=== PATIENT | female | born 1965 | race Native Hawaiian/Other Pacific Islander ===

== ENCOUNTER 2017-12-15 17:44 | Emergency (ER) | payer OTHER, MEDICAID, SELFPAY ==
[2017-12-15 17:49] VITALS: BP 155/86; PULSE 93; RESP 14; TEMP 37.3; O2SAT 100; BMI 21.0
[2017-12-15 18:22] VITALS: BP 123/78; PULSE 88; RESP 26; O2SAT 99
--- NOTE | 2017-12-15 19:01 | ED_ITS ---
HPI - Syncope General Chief Complaint: Syncope Stated Complaint: FELL LAST WEEK,BLACKING OUT Time Seen by Provider: 12/15/17 18:08 Source: patient Mode of arrival: ambulatory Limitations: no limitations History of Present Illness HPI narrative: Patient states that last week, and she was feeling lightheaded and had been having diarrhea. She passed out for an unknown amount of time 6 days ago, and then continued to have GI symptoms for a few days. Patient states things have gotten much better over the last several days, but she felt that she should get ?checked out?. Patient denies chest pain, shortness of breath, or fevers. She denies head trauma. No prior episodes like this. No history of cardiac issues. The other reason she is here is because she has been noticing that her left nipple has become increasingly retracted over the last year. She denies any mass or other abnormalities. She does note that she did lose about 5 lb over the last year. 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 Patient states she has not been to a doctor in 20 years. 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) Context: standing up Treatments prior to arrival: none Related Data Allergies Allergy/AdvReac Type Severity Reaction Status Date / Time morphine Allergy Verified 12/15/17 17:49 Review of Systems Review of Systems All systems reviewed & are unremarkable except as noted in HPI and below Constitutional Denies chills, Denies fever(s), Denies lethargy and Denies weakness Eyes Denies change in vision, Denies eye discharge, Denies irritation and Denies loss of vision ENT Ears, Nose, Mouth, and Throat: Denies change in voice, Denies neck pain and Denies sore throat Cardiovascular Denies chest pain, Reports syncope, Denies irregular heart rhythm, Denies lightheadedness, Denies palpitations, Denies dyspnea, Denies dyspnea on exertion and Denies orthopnea Respiratory Denies cough, Denies dyspnea, Denies dyspnea on exertion and Denies wheezing Gastrointestinal Gastrointestinal: Denies abdominal pain, Denies change in bowel habits, Denies diarrhea, Denies nausea and Denies vomiting Genitourinary Denies hematuria, Denies flank pain, Denies urinary incontinence and Denies urinary urgency Musculoskeletal Denies neck pain Integumentary/Breasts Reports change in breast shape, Denies pruritus, Denies erythema, Denies rash and Denies wounds Neurologic Denies confusion, Reports syncope, Denies loss of vision and Denies weakness Psychiatric Denies anxiety, Denies confusion, Denies depression, Denies homicidal ideation and Denies suicidal ideation Endocrine Denies palpitations Hematologic/Lymphatic Denies easy bruising Allergic/Immunologic Denies wheezing PFSH Surgical History No pertinent past surgical history (Acute) Comment: No smoking alcohol or drugs Exam Initial Vital Signs Initial Vital Signs: Vital Signs Temperature 99.1 F 12/15/17 17:49 Pulse Rate 93 H 12/15/17 17:49 Respiratory Rate 14 12/15/17 17:49 Blood Pressure 155/86 H 12/15/17 17:49 Pulse Oximetry 100 12/15/17 17:49 Const General: cooperative and well developed Nutritional Appearance: well nourished Orientation: alert, awake, oriented x3 and not confused HENAL Head: normocephalic and atraumatic Ears: external ears normal Nose: external nose normal and No nasal discharge Face and sinus: face symmetric and No dry mucous membranes Mouth: oral mucosae normal and moist mucous membranes Eyes General: appearance normal, both eyes and all related structures Eyelids: eyelids normal Conjunctivae: conjunctivae normal Sclera: sclerae normal Pupils: PERRL EOM: EOM intact bilaterally Neck Neck: normal visual inspection, trachea midline, No lymphadenopathy, No midline deformity and No JVD Lymphatic: No lymphedema Chest Chest: normal inspection of the chest Breast inspection: abnormal inspection of the breast (Patient has retraction of her left nipple with downward distortion. No palpable mass or indurated area is present. There is no erythema. No peau d' orange. No nipple drainage. No enlarged lymph nodes. Right breast exam is normal.) Breast Palpation: normal palpation of the breasts (No masses palpable.) and normal palpation of the axillae Resp Effort & Inspection: normal respiratory effort, able to speak in complete sentences, no respiratory distress and no use of accessory muscles Auscultation: clear to auscultation bilaterally, no rales, no rhonchi and no wheezes Cardio Rate: regular rate Rhythm: regular rhythm Heart Sounds: no click, no gallops, no murmurs and no rubs Pulses: normal peripheral pulses GI Inspection: non-distended Palpation: soft, no hepatosplenomegaly, No guarding, No pulsatile mass and No tender Auscultation: normal bowel sounds Back/Spine/Pelvis Back: No CVA tenderness Cervical Spine: cervical ROM normal and No pain with cervical ROM Thoracic/Lumbar Spine: thoracic and lumbar spine normal to inspection Skin General: no rashes or lesions noted, No jaundice and No petechiae Neuro General: alert, oriented x3, gait normal and no focal motor deficits Speech: speech normal Extrem General: full ROM, no clubbing, cyanosis or edema, no pedal edema and no calf tenderness Psych Appearance: well kempt Mental Status: mental status grossly normal Attitude: cooperative Thought Content: normal and suicidality Judgment: judgment good Course Hospital Course: I discussed with the patient that as she is feeling better, and her syncopal episode is so distant, and additionally, as it was associated with volume loss from GI symptoms, I do not feel that a workup is indicated at this time, as it is unlikely to reveal anything significant. However, her breast findings are concerning and it is very important that she seek urgent follow-up for this. As such, I a.m. referring her to oncology for further evaluation. I have also referred her for primary care follow-up , as patient has not had any sort of regular medical care and very long time. Patient is agreeable to this plan I have stressed to her the likelihood of breast cancer as a cause of her breast distortion, and have emphasized that delay in seeking care could be fatal. Patient expresses understanding. Vital Signs - 8 hr 12/15/17 17:49 12/15/17 18:22 Temperature 99.1 F Pulse Rate 93 H 88 Respiratory Rate 14 26 H Blood Pressure 155/86 H Blood Pressure [Left Arm] 123/78 Pulse Oximetry 100 99 Discharge Plan Departure Patient Disposition: Home Clinical Impression: Breast asymmetry, Syncope Discharge Date/Time: 12/15/17 20:15 Interventions: ED Discharge Assessment Last Done: 12/15/17 20:15 Instructions: Breast Cancer in Women, Breast Cancer Screening: Research and Guidelines Activity Restrictions/Additional Instructions: Your fainting episode is nearly a week ago, and as you are feeling better, and have been for the last several days, no emergent workup is necessary at this time. However, if you have further fainting episodes, or feel off balance , further testing should be done. In the meantime, drink plenty of fluids, and get adequate sleep. The most concerning thing tonight is the change in your left breast. The retraction and deformity of your nipple is concerning for breast cancer, and as such, you need to have a mammogram as soon as possible. Please call tomorrow morning to set up an appointment with your primary care physician to establish care and to be examined and set up for your mammogram. Please do not delay follow-up for this issue. Referrals: [facility] [Provider Group] ( Please call 1st thing in the morning to set up an appointment for as soon as possible. Tell them you may have breast cancer.)
[2017-12-15 19:55] VITALS: BP 126/76; PULSE 84; RESP 22; O2SAT 100
[2017-12-15 20:07] VITALS: BP 155/86; PULSE 84; RESP 22; TEMP 37.3; O2SAT 100; BMI 21.0
== END 2017-12-15 20:15 | disposition home or self-care (01) ==
PROVIDERS: Emergency Provider Emergency Medicine
DX: N64.89 Other specified disorders of breast (principal); R55 Syncope and collapse
CPT/HCPCS: 93005; 93010; 99282; 99283

== ENCOUNTER 2020-04-19 13:38 | Inpatient (IN) | payer SELFPAY ==
[2020-04-19] VITALS (10 sets, daily range): BP systolic 135–176; BP diastolic 67–88; PULSE 87–108; RESP 18–22; TEMP 37.1–37.3; O2SAT 96–100; BMI 21.2
--- NOTE | 2020-04-19 13:52 | DI.CT.S_ITS ---
PROCEDURE: CT STROKE INDICATIONS: neuro def TECHNIQUE: Noncontrast 4.5 mm thick angled axial sections acquired from the foramen magnum to the vertex, with coronal reformats. For radiation dose reduction, the following was used: automated exposure control, adjustment of mA and/or kV according to patient size. COMPARISON: None. FINDINGS: Image quality: Excellent. CSF spaces: Basal cisterns are patent. No extra-axial fluid collections. Ventricles are normal in size and shape. Brain: Hypodensities are present involving the frontal lobes bilaterally, left parietal lobe and left occipital lobe consistent with cerebral infarcts, probably subacute. Possible mass in the right parietal lobe. No intracranial bleed. No midline shift. No intracranial masses or hemorrhage. Skull and face: Calvarium and visualized facial bones are intact, without suspicious lesions. Sinuses: Visualized sinuses and mastoids are clear. IMPRESSION: 1. Multifocal hypodensities involving the frontal lobes bilaterally, left parietal lobe and left occipital lobe. There may be masses in the left frontal lobe and parietal lobe suggesting metastatic disease with strong vasogenic edema. MRI with and without contrast is recommended for further evaluation. The result was discussed with Dr. Valdez. This study fulfills neurological imaging criteria for inclusion or exclusion of acute stroke therapies based on available published neurological imaging guidelines. Dictated by: Flex Church M.D. on 04/19/2020 at 14:08 Approved by: Flex Church M.D. on 04/19/2020 at 14:19
--- NOTE | 2020-04-19 14:11 | PC.NURSE ---
Addendum entered by Lexie Vazquez R.N. 04/19/20 15:54: Patient reports was at work today and had sudden change in vision. Reports seeing bright lights like my phone was flashing in right eye only. At same time experienced sudden change in balance. Called EMS. Upon arrival patient reports still having bright lights in right eye. Denies chest pain, SOB, or dizziness while seated in bed. EKG performed. NIH scale performed. Patient to CT. Glucose POC 100. Provider aware of findings. Original Note: Patient reports last known well as 1230.
[2020-04-19] MEDS: SODIUM CHLORIDE 0.9% 1,000 ML 150 ML IV (14:25)
--- NOTE | 2020-04-19 14:29 | DI.MRI.S_ITS ---
PROCEDURE: MR HEAD/BRAIN WO/W CON INDICATIONS: ? multiple masses with vasogenic edema on CT for strok TECHNIQUE: Noncontrast axial T1 spin echo, axial T2 fast spin echo, sagittal and axial FLAIR, coronal T2 fast spin echo, axial gradient echo, axial diffusion and ADC through the brain. After the administration of contrast, axial and coronal 3D VIBE or T1 spin echo with fat saturation through the brain. COMPARISON: [facility], CT, CT STROKE, 04/19/2020, 13:53. FINDINGS: Image quality: Excellent. CSF Spaces: Basal cisterns are patent. No extra-axial fluid collections. Ventricles are normal in size and shape. Brain: Multiple rim enhancing masses are seen, with the largest seen within the left occipital lobe measuring 2 x 2 by 2.3 cm. At least 13 total masses are seen involving both cerebral hemispheres as well as both cerebellar hemispheres. Surrounding vasogenic edema is seen. Minimal mass effect is seen. No midline shift. The brainstem appears normal. Diffusion-weighted images demonstrate no acute ischemic insults. No chronic ischemic insults. Normal intravascular flow voids are present. Skull and face: Calvarial marrow is normal in signal. Orbits appear normal. Sinuses: Sinuses and mastoids appear clear. IMPRESSION: At least 13 rim enhancing parenchymal masses can be seen, which represent metastatic disease until proven otherwise. The largest of these is seen within the left occipital lobe measuring up to 2.3 cm. Dictated by: Tien Becerril M.D. on 04/19/2020 at 15:08 Approved by: Tien Becerril M.D. on 04/19/2020 at 15:11
[2020-04-19 14:33] LABS: Add Manual Diff / Slide Review NO; Basophils Absolute Auto 100 /uL (0-100); Eosinophils Absolute Auto 100 /uL (0-450); Eosinophils Percent Auto 1.4 % (2-4); Hematocrit 42.7 % (36-46); Hemoglobin 14.6 g/dL (12.0-16.0); Lymphocytes Absolute Auto 2900 /uL (1100-4500); Lymphocytes Percent Auto 32.9 % (25-40); Mean Corpuscular HGB Conc 34.1 % (30-36); Mean Corpuscular Hemoglobin 32.3 PG (26-34); Mean Corpuscular Volume 94.5 fL (80-100); Monocytes Absolute Auto 500 /uL (0-900); Monocytes Percent Auto 5.4 % (3-14); Neutrophils Absolute Auto 5200 /uL (1500-7000); Neutrophils Percent Auto 59.3 % (50-75); Platelet Count 410 X10^3/uL (150-400); Prothrombin Time 11.8 SECONDS (10.1-12.7); Red Blood Cell Count 4.52 X10^6/uL (4.0-5.2); Red Cell Distribution Width 12.5 % (11.6-14.8); White Blood Cell Count 8.7 X10^3/uL (4.5-11.0)
[2020-04-19 14:35] LABS: PTT Partial Thromboplastin Tim 33 SECONDS (26.4-36.2)
[2020-04-19 14:40] LABS: Alanine Aminotransferase 31 IU/L (<35); Albumin 4.8 g/dL (3.5-5.0); Albumin Globulin Ratio 1.4 (1.0-2.8); Alkaline Phosphatase 106 U/L (38-126); Aspartate Aminotransferase 37 IU/L (14-36); BUN Creatinine Ratio 20.6 (6-22); Bilirubin Total 0.3 mg/dL (0.2-1.3); Blood Urea Nitrogen 13 mg/dL (7-17); Calcium 9.8 mg/dL (8.4-10.2); Carbon Dioxide 26 mmol/L (22-32); Chloride 107 mmol/L (98-107); Creatine Kinase 80 U/L (30-135); Estimated Glomerular Filt Rate > 60.0 mL/min (>60); Globulin 3.4 g/dL (1.7-4.1); Glucose 107 mg/dL (70-100); HEMOLYSIS < 15 (0-50); Potassium 4.3 mmol/L (3.4-5.1); Sodium 139 mmol/L (137-145); Total Protein 8.2 g/dL (6.3-8.2)
[2020-04-19] MEDS: LORazepam 2 MG/ML INJ 0.5 MG IV (14:40)
[2020-04-19 14:48] LABS: COVID19 -Nasal RAPID Negative (Negative)
[2020-04-19 14:52] LABS: Troponin I < 0.012 ng/mL (0.01-0.034)
[2020-04-19] MEDS: DEXAMETHASONE 10 MG/ML VIAL IV (17:15)
--- NOTE | 2020-04-19 17:24 | DI.CT.S_ITS ---
PROCEDURE: CT CHEST ABD PEL W CON INDICATIONS: mets to brain found today, unknown primary TECHNIQUE: After the administration of oral and intravenous contrast, 5 mm thick sections acquired from the lung apices to the symphysis. 5 mm coronal and sagittal reformats were performed, with additional 7 mm coronal MIP reformats through the lungs. For radiation dose reduction, the following was used: automated exposure control, adjustment of mA and/or kV according to patient size. COMPARISON: [facility], MR, MR HEAD/BRAIN WO/W CON, 04/19/2020, 15:32. FINDINGS: Image quality: Excellent. CHEST: Lungs and pleura: Mild emphysematous change. Spiculated pulmonary nodule in the left upper lobe measuring at 2.4 x 1.7 cm, (3/111). No significant acute airspace opacities. Mild bibasilar atelectasis. The subtle mosaic attenuation in the lungs. No pleural effusions or pneumothorax. Central and peripheral airways appear patent and normal in caliber. Mediastinum: Heart size is normal. No pericardial effusion. Subcarinal lymph node with a short axis diameter of 1.1 cm, (2/26). Thoracic aorta and central pulmonary arteries are normal in size. Esophagus is normal in caliber. No hiatal hernia. Chest wall: Left subareolar mass measuring at 2.4 x 1.4 cm, (2/32). There appears to be left nipple retraction/inversion. No axillary or supraclavicular adenopathy by size criteria. Right thyroid nodule measuring 0.6 cm. ABDOMEN: Solid organs: Liver is enlarged. No focal lesion seen. Gallbladder is surgically absent. Biliary system is non dilated. Pancreas enhances normally. Spleen is normal in size and enhancement. No adrenal nodules. Kidneys demonstrate normal size and enhancement, without hydronephrosis. Peritoneum and bowel: Bowel loops demonstrate normal wall thickness and caliber. Diverticulosis. Appendix is gas-filled and within normal limits in caliber. No free fluid or air. Nodes and vessels: No retroperitoneal or mesenteric adenopathy by size criteria. Aorta and inferior vena cava are normal in size. Miscellaneous: No ventral hernias. PELVIS: Genitourinary: Increased density of the urine in the bladder. This is likely due to contrast excretion from recent MRI. Uterus is unremarkable. No free fluid. Miscellaneous: No inguinal hernias or adenopathy. Bones: No suspicious bony lesions. T6 compression fracture. IMPRESSION: 1. Left upper lobe spiculated pulmonary nodule measuring up to 2.4 cm. Suspect primary bronchogenic carcinoma. Solitary metastasis could also have this appearance. 2. Left subareolar mass measuring at 2.4 cm. There appears to be nipple inversion. Suspect breast cancer. Metastatic disease is also in the differential diagnosis. 3. Enlarged subcarinal lymph node suspicious for metastasis. 4. T6 compression fracture. Age indeterminate. 5. Mild emphysematous change. 6. Hepatomegaly. Dictated by: Adan Fisher M.D. on 04/19/2020 at 17:06 Approved by: Adan Fisher M.D. on 04/19/2020 at 17:23
--- NOTE | 2020-04-19 18:21 | ED.GENADULT ---
HPI - General Adult General Chief complaint: Dizziness Stated complaint: Sudden flashes light right eye and dizzy Time Seen by Provider: 04/19/20 14:03 Source: patient Mode of arrival: EMS History of Present Illness HPI narrative: 55-year-old woman with no significant medical complaints who has not seen a doctor for a number of years presents with acute onset of bright vision in the left eye, a sense of acute weakness all over and then difficulty walking with weakness in her left leg. Code stroke is called and she has taken immediately to the CT scanner. She complains of no weight loss and does note that she gained 4 lb in the last couple of days. No fevers, chills, chest pain, dyspnea, abdominal pain, vomiting, diarrhea or other constitutional symptoms Related Data Allergies Allergy/AdvReac Type Severity Reaction Status Date / Time morphine Allergy Verified 12/15/17 17:49 Review of Systems Review of Systems Narrative: Remainder of review of systems including constitutional, ENT, cardiovascular, respiratory, GI, , musculoskeletal, skin, neurologic and psychiatric systems reviewed and are unremarkable except as noted in HPI. Patient History Surgical History History of Exam Narrative Exam Narrative: General: Healthy appearing, Able to give a complete and coherent history. Well-nourished well-developed HEENT: Moist mucous membranes, normal sclera with reactive pupils, very slight left facial droop with flattened left labial fold, no sensory changes Neck: No JVD, supple, no cervical adenopathy Respiratory: Lungs are clear to auscultation, no wheezing no rales no rhonchi. Full and symmetrical air movement Cardiac: Regular rate and rhythm no murmurs no bruits Chest: Breast exam right breast is unremarkable with no masses, skin changes or nipple discharge. Left breast with obvious abnormalities with retracted lower portion of the breast and nipple, firm around the entire area without erythema, peau de orange or nipple discharge Abdomen: Soft nontender good bowel tones, no flank pain. No hepatosplenomegaly Skin: Warm and dry, no rashes Neurologic: Mild left facial droop with no sensory changes. Mild right leg weakness with no sensory changes. Right hemianopia. Extremities: No trauma, well perfused Psych: Cooperative, appropriate insight and affect Initial Vital Signs Initial Vital Signs: Vital Signs Pulse Rate 87 04/19/20 13:40 Blood Pressure 176/77 H 04/19/20 13:40 Pulse Oximetry 98 04/19/20 13:40 Scores NIH Stroke Scale Level of Conciousness: Alert, keenly responsive Ask month/age: Answers both questions correctly. Open/close eyes, close hand: Performs both tasks correctly Best gaze horizontal: Normal Visual garcia: Complete hemianopia Facial palsy: Minor paralysis, flattened nasolabial fold, asymmetry on smiling Left arm drift: No drift for full 10 sec Right arm drift: No drift for full 10 sec Left leg drift: No drift for full 5 sec Right leg drift: Drifts down, not to bed Limb ataxia: Present in one limb Sensory on face/arms/legs: Normal, no sensory loss Best language: No aphasia, normal Dysarthria: Normal Extinction or inattention: No abnormality Total NIH Stroke scale score: 5 Course Orders Ordered: ED Orders 04/19/20 13:49 COVID19 Stat Complete Blood Count AUTO DIFF Stat Comprehensive Metabolic Panel Stat Partial Thromboplastin Time Stat Prothrombin Time INR Stat Troponin & CK Cardiac Panel Stat 04/19/20 13:52 CT Stroke Stat 04/19/20 14:17 Urine Drug Screen, Rapid Stat 04/19/20 14:29 MR head/brain wo/w con Stat 04/19/20 17:24 CT chest abd pel w con Stat Sodium Chloride (Normal Saline 0.9%) 1,000 mls @ 150 mls/hr IV CONT ANNA Last Infusion: 04/19/20 18:15 Dose: 150 mls/hr Documented by: Admin: 04/19/20 14:25 Dose: 150 mls/hr Documented by: WILL Discontinued Medications Dexamethasone (Dexamethasone 10 Mg/Ml Vial) 10 mg IV NOW ONE Stop: 04/19/20 17:11 Last Admin: 04/19/20 17:15 Dose: 10 mg Documented by: WILL Lorazepam (Lorazepam 2 Mg/Ml Inj) 0.5 mg IV NOW ONE Stop: 04/19/20 14:38 Last Admin: 04/19/20 14:40 Dose: 0.5 mg Documented by: WLIL Vital Signs Vital signs: Vital Signs - 8 hr 04/19/20 13:40 04/19/20 14:00 04/19/20 14:29 Temperature 98.8 F Pulse Rate 87 100 H Respiratory Rate 21 Blood Pressure 176/77 H Pulse Oximetry 98 97 04/19/20 14:30 04/19/20 15:00 04/19/20 16:08 Temperature Pulse Rate 95 H 100 H 100 H Respiratory Rate 18 19 Blood Pressure 152/74 H 169/75 H Pulse Oximetry 97 96 98 04/19/20 16:10 04/19/20 16:30 04/19/20 17:00 Temperature Pulse Rate 106 H 108 H 95 H Respiratory Rate 21 20 22 Blood Pressure 155/67 H 154/72 H 135/67 Pulse Oximetry 97 96 96 Medical Decision Making Medical Records Medical records reviewed: Yes I reviewed the patient's medical records. Lab Data Lab results reviewed: Yes I reviewed the patient's lab results. Result diagrams: 04/19/20 13:49 04/19/20 13:49 Labs: Lab Results 04/19/20 04/19/20 04/19/20 Range/Units 13:49 13:49 13:49 WBC 8.7 (4.5-11.0) X10^3/uL RBC 4.52 (4.0-5.2) X10^6/uL Hgb 14.6 (12.0-16.0) g/dL Hct 42.7 (36-46) % MCV 94.5 (80-100) fL MCH 32.3 (26-34) PG MCHC 34.1 (30-36) % RDW 12.5 (11.6-14.8) % Plt Count 410 H (150-400) X10^3/uL Neut % (Auto) 59.3 (50-75) % Lymph % (Auto) 32.9 (25-40) % [place] % (Auto) 5.4 (3-14) % Eos % (Auto) 1.4 L (2-4) % Baso % (Auto) 1.0 (0-2) % Neut # (Auto) 5200 (7172-8945) /uL Lymph # (Auto) 2900 (3980-0950) /uL [place] # (Auto) 500 (0-900) /uL Eos # (Auto) 100 (0-450) /uL Baso # (Auto) 100 (0-100) /uL PT 11.8 (10.1-12.7) SECONDS INR 1.0 (0.9-1.3) APTT 33 (26.4-36.2) SECONDS Sodium 139 (137-145) mmol/L Potassium 4.3 (3.4-5.1) mmol/L Chloride 107 (98-107) mmol/L Carbon Dioxide 26 (22-32) mmol/L BUN 13 (7-17) mg/dL Creatinine 0.63 (0.52-1.04) mg/dL Estimated GFR > 60.0 (>60) mL/min BUN/Creatinine Ratio 20.6 (6-22) Glucose 107 H (70-100) mg/dL Calcium 9.8 (8.4-10.2) mg/dL Total Bilirubin 0.3 (0.2-1.3) mg/dL AST 37 H (14-36) IU/L ALT 31 (<35) IU/L Alkaline Phosphatase 106 (38-126) U/L Total Creatine Kinase 80 (30-135) U/L CK-MB (CK-2) TNP CK-MB (CK-2) Rel Index TNP Troponin I < 0.012 (0.01-0.034) ng/mL Total Protein 8.2 (6.3-8.2) g/dL Albumin 4.8 (3.5-5.0) g/dL Globulin 3.4 (1.7-4.1) g/dL Albumin/Globulin Ratio 1.4 (1.0-2.8) SARS-CoV-2 (PCR) (Negative) 04/19/20 Range/Units 13:49 WBC (4.5-11.0) X10^3/uL RBC (4.0-5.2) X10^6/uL Hgb (12.0-16.0) g/dL Hct (36-46) % MCV (80-100) fL MCH (26-34) PG MCHC (30-36) % RDW (11.6-14.8) % Plt Count (150-400) X10^3/uL Neut % (Auto) (50-75) % Lymph % (Auto) (25-40) % [place] % (Auto) (3-14) % Eos % (Auto) (2-4) % Baso % (Auto) (0-2) % Neut # (Auto) (2220-3075) /uL Lymph # (Auto) (1381-4444) /uL [place] # (Auto) (0-900) /uL Eos # (Auto) (0-450) /uL Baso # (Auto) (0-100) /uL PT (10.1-12.7) SECONDS INR (0.9-1.3) APTT (26.4-36.2) SECONDS Sodium (137-145) mmol/L Potassium (3.4-5.1) mmol/L Chloride (98-107) mmol/L Carbon Dioxide (22-32) mmol/L BUN (7-17) mg/dL Creatinine (0.52-1.04) mg/dL Estimated GFR (>60) mL/min BUN/Creatinine Ratio (6-22) Glucose (70-100) mg/dL Calcium (8.4-10.2) mg/dL Total Bilirubin (0.2-1.3) mg/dL AST (14-36) IU/L ALT (<35) IU/L Alkaline Phosphatase (38-126) U/L Total Creatine Kinase (30-135) U/L CK-MB (CK-2) CK-MB (CK-2) Rel Index Troponin I (0.01-0.034) ng/mL Total Protein (6.3-8.2) g/dL Albumin (3.5-5.0) g/dL Globulin (1.7-4.1) g/dL Albumin/Globulin Ratio (1.0-2.8) SARS-CoV-2 (PCR) Negative (Negative) Point of Care Testing Glucose POC 100 Point of care testing: Point of Care Testing Glucose POC [address] scan - head: Radiologist's Impression: FINDINGS: Image quality: Excellent. CSF spaces: Basal cisterns are patent. No extra-axial fluid collections. Ventricles are normal in size and shape. Brain: Hypodensities are present involving the frontal lobes bilaterally, left parietal lobe and left occipital lobe consistent with cerebral infarcts, probably subacute. Possible mass in the right parietal lobe. No intracranial bleed. No midline shift. No intracranial masses or hemorrhage. Skull and face: Calvarium and visualized facial bones are intact, without suspicious lesions. Sinuses: Visualized sinuses and mastoids are clear. IMPRESSION: 1. Multifocal hypodensities involving the frontal lobes bilaterally, left parietal lobe and left occipital lobe. There may be masses in the left frontal lobe and parietal lobe suggesting metastatic disease with strong vasogenic edema. MRI with and without contrast is recommended for further evaluation. The result was discussed with Dr. Valdez. This study fulfills neurological imaging criteria for inclusion or exclusion of acute stroke therapies based on available published neurological imaging guidelines. Dictated by: Flex Church M.D. on 04/19/2020 at 14:08 Brain MRI with and without contrast: Radiologist's Impression: FINDINGS: Image quality: Excellent. CSF Spaces: Basal cisterns are patent. No extra-axial fluid collections. Ventricles are normal in size and shape. Brain: Multiple rim enhancing masses are seen, with the largest seen within the left occipital lobe measuring 2 x 2 by 2.3 cm. At least 13 total masses are seen involving both cerebral hemispheres as well as both cerebellar hemispheres. Surrounding vasogenic edema is seen. Minimal mass effect is seen. No midline shift. The brainstem appears normal. Diffusion-weighted images demonstrate no acute ischemic insults. No chronic ischemic insults. Normal intravascular flow voids are present. Skull and face: Calvarial marrow is normal in signal. Orbits appear normal. Sinuses: Sinuses and mastoids appear clear. IMPRESSION: At least 13 rim enhancing parenchymal masses can be seen, which represent metastatic disease until proven otherwise. The largest of these is seen within the left occipital lobe measuring up to 2.3 cm. Dictated by: Tien Becerril M.D. on 04/19/2020 at 15:08 CT scan chest, abdomen, pelvis: Radiologist's Impression: FINDINGS: Image quality: Excellent. CHEST: Lungs and pleura: Mild emphysematous change. Spiculated pulmonary nodule in the left upper lobe measuring at 2.4 x 1.7 cm, (3/111). No significant acute airspace opacities. Mild bibasilar atelectasis. The subtle mosaic attenuation in the lungs. No pleural effusions or pneumothorax. Central and peripheral airways appear patent and normal in caliber. Mediastinum: Heart size is normal. No pericardial effusion. Subcarinal lymph node with a short axis diameter of 1.1 cm, (2/26). Thoracic aorta and central pulmonary arteries are normal in size. Esophagus is normal in caliber. No hiatal hernia. Chest wall: Left subareolar mass measuring at 2.4 x 1.4 cm, (2/32). There appears to be left nipple retraction/inversion. No axillary or supraclavicular adenopathy by size criteria. Right thyroid nodule measuring 0.6 cm. ABDOMEN: Solid organs: Liver is enlarged. No focal lesion seen. Gallbladder is surgically absent. Biliary system is non dilated. Pancreas enhances normally. Spleen is normal in size and enhancement. No adrenal nodules. Kidneys demonstrate normal size and enhancement, without hydronephrosis. Peritoneum and bowel: Bowel loops demonstrate normal wall thickness and caliber. Diverticulosis. Appendix is gas-filled and within normal limits in caliber. No free fluid or air. Nodes and vessels: No retroperitoneal or mesenteric adenopathy by size criteria. Aorta and inferior vena cava are normal in size. Miscellaneous: No ventral hernias. PELVIS: Genitourinary: Increased density of the urine in the bladder. This is likely due to contrast excretion from recent MRI. Uterus is unremarkable. No free fluid. Miscellaneous: No inguinal hernias or adenopathy. Bones: No suspicious bony lesions. T6 compression fracture. IMPRESSION: 1. Left upper lobe spiculated pulmonary nodule measuring up to 2.4 cm. Suspect primary bronchogenic carcinoma. Solitary metastasis could also have this appearance. 2. Left subareolar mass measuring at 2.4 cm. There appears to be nipple inversion. Suspect breast cancer. Metastatic disease is also in the differential diagnosis. 3. Enlarged subcarinal lymph node suspicious for metastasis. 4. T6 compression fracture. Age indeterminate. 5. Mild emphysematous change. 6. Hepatomegaly. Dictated by: Adan Fisher M.D. on 04/19/2020 at 17:06 ECG Data Attestation: I personally reviewed and interpreted this ECG as follows: Interpretation: Sinus tachycardia at 1:09 a.m. 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 Case is reviewed with Dr. Red, oncologist. His recommendation is admission to facilitate workup to identify primary lesion, allow for emergent oncology consultation and for Radiation Oncology evaluation an urgent treatment if appropriate. Physical exam suggests a left breast primary and CT scan suggests a left pulmonary primary. She is given 10 mg of IV Decadron for the vasogenic edema around the lesions in the brain. She is feeling somewhat better. Still has the right hemianopia. Dr. Red has suggested 4 mg of Decadron 3 times a day for continued treatment of the vasogenic edema. [facility] did not have bed availability this evening however the anticipate that they will tomorrow. In light of anticipated oncology needs and with patient preference taken into account, [facility] has agreed to prioritize admission for this woman tomorrow morning and she will be admitted to our hospitalist service at [facility] this evening. Initial findings and concerns regarding the head scan and metastatic lesions are reviewed with patient. Expectation of transfer to [facility] and continued workup with recognition that tissue sample will need to be obtained to confirm diagnosis and elucidate treatment. She is hemodynamically stable at this time Discharge Plan Departure Patient Disposition: Admitted As Inpatient Admit Date/Time: 04/19/20 17:39 Admit Provider: Zaheer Martinez
--- NOTE | 2020-04-19 18:52 | PC.NURSE ---
Addendum entered by Salome Garcia R.N. 04/19/20 22:43: YENNI Rivero has seen pt and pt's spouse (who is rooming in) this evening shift. Continuous pulse oximeter in place as ordered as well as BL calf scd's. Pt expresses no concerns or complaints. Encouraged to call for needs/desire to move from bed. Rationale for interventions/meds provided. Original Note: Pt to room 211. Ambulates with assistance as pt c/o dizziness. When in bed denies any visual disturbance and reports flashes have ceased. Denies any pain. Instructed pt not to attempt out of bed without staff assistance d/t dizziness. Pt verbalizes agreement. Awaiting further orders.
[2020-04-19 20:30] LABS: Hemoglobin A1C% w Est Avg Glu 5.7 % (4.0-6.0)
[2020-04-19 20:32] LABS: UR Morphine/Opiate cutoff 300 Negative (Negative); Ur Creatinine Normal (Normal); Ur Specific Gravity Normal (Normal); Urine Amphetamines Negative (Negative); Urine Barbiturates Negative (Negative); Urine Benzodiazepines Negative (Negative); Urine Cocaine Negative (Negative); Urine MDMA Negative (Negative); Urine Methadone Negative (Negative); Urine Methamphetamines Negative (Negative); Urine Oxycodone Negative (Negative); Urine Phencyclidine Negative (Negative); Urine Tetrahydrocannabinol Negative (Negative); Urine Tricyclic Antidepressant Negative (Negative); Urine pH Normal (Normal)
--- NOTE | 2020-04-19 21:29 | P.HP_ITS ---
History of Present Illness History of Present Illness Date Patient Seen: 04/19/20 Time Patient Seen: 20:12 Chief complaint: Sudden flashes light right eye and dizzy Narrative: Ms. abram Boucher is a 55 year female who is a current smoker and has a past medical history significant only for hypothyroidism diagnosed 22 years ago and currently takes no routine medications and presents to the ER with an acute onset of right upper visual field loss with flashing lights. The patient states his symptoms began suddenly this afternoon and were associated with weakness disequilibrium and difficulty walking. She felt that her left leg was weaker than the right. 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 The patient does endorse a weight loss of approximately 14 lb over the last 2 years stating her average weight was approximately 124 and she has been struggling to keep weight on. Patient also has finding of abnormal left breast with tissue retraction and folding which started also 2 years ago. Patient has not done self-breast exams nor soft follow-up care. She reports she has no first-degree relatives with cancer. She denies complaints fevers or chills, headaches, nasal congestion or sore throat. She has had visual changes and disequilibrium as noted above. She denies neck or back pain has had no falls or trauma. She denies complaints of chest pain or palpitations. She has no shortness of breath, exertional dyspnea, cough or wheezing. Denies complaints of epigastric or abdominal pain and has had no nausea vomiting, diarrhea or constipation. She denies complaints urinary symptoms of urgency burning or frequency. She does endorse right ankle pain and swelling which has since resolved and denies complaints of pedal edema. Upon arrival to the ER the patient has temperature of 98.8?, heart rate of 100, blood pressure 132/94, respirations of 18 saturating 97% on room air. The patient has initiated as code stroke upon arrival the ER with CT finding multi focal hypodensities involving the frontal lobes bilaterally left parietal lobe and left occipital lobe suggestive metastatic disease with strong vasogenic edema. An MRI of the brain with and without is obtained finding 13 rim enhancing parenchymal masses the largest seen within the left occipital lobe measuring 2.[address] of the chest abdomen pelvis with contrast is obtained finding mild emphysematous changes with a spiculated pulmonary nodule in the left upper lobe measuring 2.4 x 1.7 cm, mild bibasilar atelectasis without pleural effusion or pneumothorax, subcarinal lymph node with short diameter of 1.1 cm and a left subareolar mass measuring 2.4 x 1.4 cm noting appearance of nipple retraction or inversion, no axillary or sub clavicular adenopathy by size criteria, right thyroid nodule measuring 0.6 cm. In the abdomen: Mild hepatomegaly a, the pancreas and spleen are normal in appearance in the gallbladder is surgically absent kidneys are found to be normal size and enhancement without hydronephrosis. On laboratory analysis the patient has white count of 8.7, hemoglobin of 14.6, hematocrit of 42.7 and platelets 410. Her coagulation studies are within normal limits as are chemistries with a BUN of 13 and a creatinine of 0.63, calcium is 9.8. Her nonfasting glucose is 107. She has a total bilirubin is 0.3, AST of 37, ALT of 31 alkaline phosphatase 106. Total CK is 80 and troponin is negative at less than 0.012. Her COVID screening is negative. The ER provider on ER evaluation the patient demonstrated facial asymmetry, visual field loss and right leg weakness. Dr. Peck spoke with Dr. Red, oncologist, who recommended transfer to [facility] for aggressive workup however no beds are presently available will be prioritized. Recommended Decadron 10 mg be given. The patient is admitted to the hospitalist service with a preliminary diagnosis of metastatic breast cancer. Patient History Medical History (Updated 04/19/20 @ 21:51 by YENNI Miller) Hypothyroidism Surgical History (Updated 04/19/20 @ 21:51 by YENNI Miller) History of History of cholecystectomy Family & Social History Family History (Updated 04/19/20 @ 21:55 by YENNI Miller) Father Diabetes mellitus Chronic kidney disease with end stage renal failure on dialysis Hx of BKA Mother Epilepsy Heart attack Brother Trauma Social History: household members spouse Prior Living Arrangements House Safety & Behavioral: Feels Safe in Current Yes Environment Been Physically Hurt or No Threatened By a Person Suicidal Ideation Description None Suicide Plan Description No Plan Tobacco & Substance use: Smoking Status Current every day smoker Smoking packs per day 0.5 alcohol intake current alcohol intake frequency holiday/special occasion Substance Use Type does not use Meds Home Medications and Allergies Home Medications Medication Instructions Recorded Confirmed Type No Known Home Medications 04/19/20 04/19/20 History Allergies Allergy/AdvReac Type Severity Reaction Status Date / Time morphine Allergy Verified 12/15/17 17:49 Review of Systems Review of Systems ROS: Yes All systems reviewed with the patient and are negative except as otherwise documented Exam Vital Signs (past 8 hours): - 04/19/20 13:40 04/19/20 14:00 04/19/20 14:29 Temperature 98.8 F Pulse Rate 87 100 H Respiratory Rate 21 Blood Pressure 176/77 H Pulse Oximetry 98 97 04/19/20 14:30 04/19/20 15:00 04/19/20 16:08 Temperature Pulse Rate 95 H 100 H 100 H Respiratory Rate 18 19 Blood Pressure 152/74 H 169/75 H Pulse Oximetry 97 96 98 04/19/20 16:10 04/19/20 16:30 04/19/20 17:00 Temperature Pulse Rate 106 H 108 H 95 H Respiratory Rate 21 20 22 Blood Pressure 155/67 H 154/72 H 135/67 Pulse Oximetry 97 96 96 04/19/20 18:25 Temperature 99.1 F Pulse Rate 97 H Respiratory Rate 18 Blood Pressure 151/88 H Pulse Oximetry 100 Oxygen Delivery Method Room Air Narrative Exam Narrative: GENERAL APPEARANCE: well developed, somewhat frail-appearing female in no acute distress. HEENT: Facial asymmetry with left droop, PERRLA, sclerae is anicteric, EOMs intact without nystagmus, no sinus tenderness to percussion, no rhinorrhea, mucous membranes are moist and pink without lesions or exudate. NECK/THYROID: neck supple, no JVD, no carotid bruit, no thyromegaly, trachea midline. LYMPH NODES: no cervical or supraclavicular lymphadenopathy. SKIN: [place], warm and dry, no visible lesions, rashes, ulcerations or petechiae. HEART: regular rate and rhythm, S1-S2, no murmur, no rubs or gallops, brisk capillary refill, no edema LUNGS: clear to auscultation bilaterally, no coarseness crackles or wheezing, no cough present CHEST: Symmetrical movement, no accessory muscle use, good tidal volume. ABDOMEN: Soft, no distention, no abdominal tenderness, no guarding or peritoneal signs, no organomegaly, no flank or suprapubic tenderness, active bowel tones. BACK: Normal curvature, nontender to palpation, no CVA tenderness on percussion EXTREMITIES: moves all extremities, strength is 5/5 and symmetrical, no deformities or joint effusions. NEUROLOGIC: AAO x4, right facial droop right upper visual field deficit, BUE and BLE without drift, right arm ataxia, sensation is intact bilaterally, no evidence of aphasia or dysarthria. PSYCH: Good eye contact, cooperative, appropriate with stable behavior Objective Labs Result Diagrams: 04/19/20 13:49 04/19/20 13:49 Labs: Laboratory Results - last 24 hr 04/19/20 04/19/20 04/19/20 13:49 13:49 13:49 WBC 8.7 RBC 4.52 Hgb 14.6 Hct 42.7 MCV 94.5 MCH 32.3 MCHC 34.1 RDW 12.5 Plt Count 410 H Neut % (Auto) 59.3 Lymph % (Auto) 32.9 Hand % (Auto) 5.4 Eos % (Auto) 1.4 L Baso % (Auto) 1.0 Neut # (Auto) 5200 Lymph # (Auto) 2900 Hand # (Auto) 500 Eos # (Auto) 100 Baso # (Auto) 100 PT 11.8 INR 1.0 APTT 33 Sodium 139 Potassium 4.3 Chloride 107 Carbon Dioxide 26 BUN 13 Creatinine 0.63 Estimated GFR > 60.0 BUN/Creatinine Ratio 20.6 Glucose 107 H Hemoglobin A1c Calcium 9.8 Magnesium Total Bilirubin 0.3 AST 37 H ALT 31 Alkaline Phosphatase 106 Total Creatine Kinase 80 CK-MB (CK-2) TNP CK-MB (CK-2) Rel Index TNP Troponin I < 0.012 Total Protein 8.2 Albumin 4.8 Globulin 3.4 Albumin/Globulin Ratio 1.4 U Opiates 300ng/mL cut Ur Oxycodone Screen Urine Methadone Screen Ur Barbiturates Screen U Tricyclic Antidepress Ur Phencyclidine Scrn Ur Amphetamines Screen U Methamphetamines Scrn Ur MDMA Scrn (Ecstasy) U Benzodiazepines Scrn Urine Cocaine Screen U Marijuana (THC) Screen SARS-CoV-2 (PCR) 04/19/20 04/19/20 04/19/20 13:49 13:49 13:49 WBC RBC Hgb Hct MCV MCH MCHC RDW Plt Count Neut % (Auto) Lymph % (Auto) Hand % (Auto) Eos % (Auto) Baso % (Auto) Neut # (Auto) Lymph # (Auto) Hand # (Auto) Eos # (Auto) Baso # (Auto) PT INR APTT Sodium Potassium Chloride Carbon Dioxide BUN Creatinine Estimated GFR BUN/Creatinine Ratio Glucose Hemoglobin A1c 5.7 Calcium Magnesium 2.0 Total Bilirubin AST ALT Alkaline Phosphatase Total Creatine Kinase CK-MB (CK-2) CK-MB (CK-2) Rel Index Troponin I Total Protein Albumin Globulin Albumin/Globulin Ratio U Opiates 300ng/mL cut Ur Oxycodone Screen Urine Methadone Screen Ur Barbiturates Screen U Tricyclic Antidepress Ur Phencyclidine Scrn Ur Amphetamines Screen U Methamphetamines Scrn Ur MDMA Scrn (Ecstasy) U Benzodiazepines Scrn Urine Cocaine Screen U Marijuana (THC) Screen SARS-CoV-2 (PCR) Negative 04/19/20 20:10 WBC RBC Hgb Hct MCV MCH MCHC RDW Plt Count Neut % (Auto) Lymph % (Auto) Hand % (Auto) Eos % (Auto) Baso % (Auto) Neut # (Auto) Lymph # (Auto) Hand # (Auto) Eos # (Auto) Baso # (Auto) PT INR APTT Sodium Potassium Chloride Carbon Dioxide BUN Creatinine Estimated GFR BUN/Creatinine Ratio Glucose Hemoglobin A1c Calcium Magnesium Total Bilirubin AST ALT Alkaline Phosphatase Total Creatine Kinase CK-MB (CK-2) CK-MB (CK-2) Rel Index Troponin I Total Protein Albumin Globulin Albumin/Globulin Ratio U Opiates 300ng/mL cut Negative Ur Oxycodone Screen Negative Urine Methadone Screen Negative Ur Barbiturates Screen Negative U Tricyclic Antidepress Negative Ur Phencyclidine Scrn Negative Ur Amphetamines Screen Negative U Methamphetamines Scrn Negative Ur MDMA Scrn (Ecstasy) Negative U Benzodiazepines Scrn Negative Urine Cocaine Screen Negative U Marijuana (THC) Screen Negative SARS-CoV-2 (PCR) Assessment & Plan Assessment & Plan narrative: This is a 55-year-old female with no significant past medical history except for untreated hypothyroidism presents to the hospital with acute onset of visual changes weakness and disequilibrium. The patient is initially treated with code stroke initial CT scan finds no hemorrhage but finds multiple lesions further clarified on MRI appearing to be metastatic brain cancer with vasogenic edema. 1. Multifocal brain lesions, believed to be metastatic, acute, present on admission, active -patient presents with acute onset of neurological symptoms including left f acial droop, right upper visual field loss with flashing lights right leg weakness and right arm ataxia. -patient received Decadron 10 mg IV in the emergency department following consultation with Mell[facility] oncologist. Will continue Decadron 4 mg IV every 6 hours. -patient has had marked improvement in her symptoms with resolution of the flashing lights but persistence of the visual field loss, left facial droop and mild right upper extremity ataxia. -plan is formulated transfer the patient to [facility] when bed is available for Oncology Services. -diagnosis and imaging findings have been discussed with the patient and her at bedside and are in agreement with plan for transfer when bed becomes available. 2. Left breast mass, chronic, present on admission, active. -patient reports changes in her left breast occurring over the past 2 years. Breast now presents with inferior puckering/folding, no nipple inversion. Patient lytes no family history of breast cancer. -patient additionally reports weight loss over the last 2 years. Blood counts are within normal limits and calcium is normal at 9.8. -palpable mass behind the areola extending to the 3 o'clock position, nontender to palpation, no drainage. -CT finds left subareolar mass measuring 3.4 x 1.4 cm without axillary or subclavicular adenopathy being size criteria. 3. . Left upper lobe pulmonary nodule, present on admission, active. -patient denies chest pain or shortness of breath with these no exertional dyspnea cough or wheeze. She continues to be a 1/2 pack per day smoker. -CT finds a spiculated pulmonary nodule in the left upper lobe measuring 2.4 x 1.7 cm as well as makes note of subcarinal lymph node with short axis diameter 1.1 cm, no pulmonary fusion. -incidental pulmonary findings of emphysema Johnnie is changes with mosaic pattern. 4. Current smoker, chronic, stable. -provide teaching on smoking encouraged smoking cessation. 5. History of Hypothyroidism, not treated medically. -will obtain a TSH with reflex T4. VTE prophylaxis: Heparin subcutaneously IV fluid: Saline lock Diet: Regular diet Code status: Discussed at bedside with the patient and her , patient wishes full code and designates her to be surrogate decision maker. The patient is admitted to the hospital as due to the severity of her symptoms with new finding of metastatic breast cancer requiring further evaluation and treatment. The patient is admitted as observation status with expected length of stay to be less than 2 midnights with plan transfer to [facility] as bed becomes available for specialty oncologic services. COVID-19 COVID-19 status: Negative Result date/Date tested (Pos, Neg/Pending): 04/19/20 Scores GCS Nita coma scale eye opening: Spontaneous Nita coma scale verbal response: Orientated Nita coma scale motor response: Obey commands [place] coma scale total score: 15 NIHSS Level of Conciousness: Alert, keenly responsive Ask month/age: Answers both questions correctly. Open/close eyes, close hand: Performs both tasks correctly Best gaze horizontal: Normal Visual garcia: Partial hemianopia Facial palsy: Minor paralysis, flattened nasolabial fold, asymmetry on smiling Left arm drift: No drift for full 10 sec Right arm drift: No drift for full 10 sec Left leg drift: No drift for full 5 sec Right leg drift: No drift for full 5 sec Limb ataxia: Present in one limb Sensory on face/arms/legs: Normal, no sensory loss Best language: No aphasia, normal Dysarthria: Normal Extinction or inattention: No abnormality Total NIH Stroke scale score: 3 Quality VTE Deep Vein Thrombosis/Pulmonary Embolism Present on Admission: No
[2020-04-19] MEDS: FAMOTIDINE 20 MG TABLET PO (21:34)
[2020-04-19] MEDS: HEPARIN 5,000 UNIT/ML VIAL 5000 UNIT SUBCUT (21:34)
[2020-04-19] MEDS: DOCUSATE 100 MG CAPSULE PO (21:34)
[2020-04-19] MEDS: SODIUM CHLORIDE 0.9% FLUSH 10 ML IV (21:51)
[2020-04-19 22:18] LABS: TSH w/ Reflex to FT4 0.96 uIU/mL (0.47-4.68)
[2020-04-20] MEDS: DEXAMETHASONE 4 MG/ML VIAL IV ×2 (00:11→06:14)
[2020-04-20] MEDS: SODIUM CHLORIDE 0.9% FLUSH 10 ML IV ×3 (00:12→06:56)
[2020-04-20 00:25] VITALS: BP 125/79; PULSE 85; RESP 16; TEMP 36.8; O2SAT 97
--- NOTE | 2020-04-20 02:33 | PC.NURSE ---
Addendum entered by Mica Chan R.N. 04/20/20 05:27: Weight appears to have decreased by > 2kg but uncertain if admission weight was a stated weight or weight from bed scale. Original Note: 0019 patient is alert and oriented and neuro status is intact. Breath sounds CTA with RA sat of 97%; on continuous oximetry. HRR and telemetry reading was SR. Denies nausea. BT present and abdomen is soft. Denies dysuria, frequency or urgency with urination. Able to move self in bed. Provided SBA when out of bed as patient complains of feeling weak. Skin is dry. Denies pain. Wearing bilateral calf SCD's. Fall risk score is moderate and bed alarm is activated. Spouse rooming in.
[2020-04-20 03:35] LABS: WBC Urine None Seen (0-5/HPF)
[2020-04-20 03:43] LABS: Appearance Urine UA CLEAR; Bilirubin Urine UA NEGATIVE (NEGATIVE); Color Urine UA YELLOW; Glucose Urine UA NEGATIVE (Negative); Ketones Urine UA NEGATIVE (NEGATIVE); Leukocyte Esterase Urine UA NEGATIVE (NEGATIVE); Nitrite Urine UA POSITIVE (Negative); Occult Blood Urine UA 1+ (Negative); Protein Urine UA NEGATIVE (Negative); Specific Gravity Urine UA 1.025 (1.000-1.035); Urobilinogen Urine UA 0.2 E.U./dL (0.2)
[2020-04-20 03:53] LABS: RBC Urine 0-1/HPF (0-5/HPF); Squamous Epithelial Cell Urine 0-1 /HPF (0-5/HPF)
[2020-04-20 03:54] LABS: Bacteria Urine Moderate (10-30)
[2020-04-20 03:55] LABS: Culture Indicated Urine Specimen Cultured; Hyaline Casts Urine 0-1/LPF; Uric Acid Crystals Urine Few
[2020-04-20 05:25] VITALS: BP 149/82; PULSE 83; RESP 16; TEMP 36.7; O2SAT 98
[2020-04-20 06:25] LABS: Alanine Aminotransferase 26 IU/L (<35); Albumin 4.5 g/dL (3.5-5.0); Albumin Globulin Ratio 1.5 (1.0-2.8); Alkaline Phosphatase 93 U/L (38-126); Aspartate Aminotransferase 25 IU/L (14-36); BUN Creatinine Ratio 27.9 (6-22); Bilirubin Total 0.4 mg/dL (0.2-1.3); Blood Urea Nitrogen 12 mg/dL (7-17); Calcium 9.6 mg/dL (8.4-10.2); Carbon Dioxide 21 mmol/L (22-32); Chloride 109 mmol/L (98-107); Estimated Glomerular Filt Rate > 60.0 mL/min (>60); Globulin 3.1 g/dL (1.7-4.1); Glucose 168 mg/dL (70-100); HEMOLYSIS < 15 (0-50); Potassium 4.3 mmol/L (3.4-5.1); Sodium 137 mmol/L (137-145); Total Protein 7.6 g/dL (6.3-8.2)
[2020-04-20] MEDS: CEFTRIAXONE 1 GM/50 ML FROZ.PIGGY IV (06:55)
[2020-04-20] MEDS: ASPIRIN EC 81 MG TABLET PO (08:25)
[2020-04-20] MEDS: HEPARIN 5,000 UNIT/ML VIAL 5000 UNIT SUBCUT (08:26)
[2020-04-20] MEDS: FAMOTIDINE 20 MG TABLET PO (08:26)
[2020-04-20] MEDS: DOCUSATE 100 MG CAPSULE PO (08:26)
[2020-04-20] MEDS: ACETAMINOPHEN 325 MG TABLET 650 MG PO (08:31)
--- NOTE | 2020-04-20 08:44 | PM.DS.1 ---
History of Present Illness History of Present Illness Date Patient Seen: 04/20/20 Time Patient Seen: 08:45 Chief complaint: Sudden flashes light right eye and dizzy Narrative: As per YENNI Miller: Ms. abram Boucher is a 55 year female who is a current smoker and has a past medical history significant only for hypothyroidism diagnosed 22 years ago and currently takes no routine medications and presents to the ER with an acute onset of right upper visual field loss with flashing lights. The patient states his symptoms began suddenly this afternoon and were associated with weakness disequilibrium and difficulty walking. She felt that her left leg was weaker than the right. 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 The patient does endorse a weight loss of approximately 14 lb over the last 2 years stating her average weight was approximately 124 and she has been struggling to keep weight on. Patient also has finding of abnormal left breast with tissue retraction and folding which started also 2 years ago. Patient has not done self-breast exams nor soft follow-up care. She reports she has no first-degree relatives with cancer. She denies complaints fevers or chills, headaches, nasal congestion or sore throat. She has had visual changes and disequilibrium as noted above. She denies neck or back pain has had no falls or trauma. She denies complaints of chest pain or palpitations. She has no shortness of breath, exertional dyspnea, cough or wheezing. Denies complaints of epigastric or abdominal pain and has had no nausea vomiting, diarrhea or constipation. She denies complaints urinary symptoms of urgency burning or frequency. She does endorse right ankle pain and swelling which has since resolved and denies complaints of pedal edema. Upon arrival to the ER the patient has temperature of 98.8?, heart rate of 100, blood pressure 132/94, respirations of 18 saturating 97% on room air. The patient has initiated as code stroke upon arrival the ER with CT finding multifocal hypodensities involving the frontal lobes bilaterally left parietal lobe and left occipital lobe suggestive metastatic disease with strong vasogenic edema. An MRI of the brain with and without is obtained finding 13 rim enhancing parenchymal masses the largest seen within the left occipital lobe measuring 2.[address] of the chest abdomen pelvis with contrast is obtained finding mild emphysematous changes with a spiculated pulmonary nodule in the left upper lobe measuring 2.4 x 1.7 cm, mild bibasilar atelectasis without pleural effusion or pneumothorax, subcarinal lymph node with short diameter of 1.1 cm and a left subareolar mass measuring 2.4 x 1.4 cm noting appearance of nipple retraction or inversion, no axillary or sub clavicular adenopathy by size criteria, right thyroid nodule measuring 0.6 cm. In the abdomen: Mild hepatomegaly a, the pancreas and spleen are normal in appearance in the gallbladder is surgically absent kidneys are found to be normal size and enhancement without hydronephrosis. On laboratory analysis the patient has white count of 8.7, hemoglobin of 14.6, hematocrit of 42.7 and platelets 410. Her coagulation studies are within normal limits as are chemistries with a BUN of 13 and a creatinine of 0.63, calcium is 9.8. Her nonfasting glucose is 107. She has a total bilirubin is 0.3, AST of 37, ALT of 31 alkaline phosphatase 106. Total CK is 80 and troponin is negative at less than 0.012. Her COVID screening is negative. The ER provider on ER evaluation the patient demonstrated facial asymmetry, visual field loss and right leg weakness. Dr. Peck spoke with Dr. Red, oncologist, who recommended transfer to [facility] for aggressive workup however no beds are presently available will be prioritized. Recommended Decadron 10 mg be given. The patient is admitted to the hospitalist service with a preliminary diagnosis of metastatic breast cancer. Discharge Providers Provider Date of admission: 04/19/20 17:39 Discharge Date: 04/20/20 Consults: 04/19/20 20:09 Consult to Discharge Planning Routine Comment: Consult to Occupational Therapy Evaluate & Treat Comment: Metastatic brain cancer with left weakness Physician Instructions: Evaluate and treat Consult to Physical Therapy Evaluate & Treat Comment: Metastatic brain cancer with left weakness Physician Instructions: Evaluate and Treat 04/19/20 20:13 Consult to Discharge Planning Routine Comment: Consult to Occupational Therapy Evaluate & Treat Comment: Physician Instructions: Evaluate and treat Consult to Physical Therapy Evaluate & Treat Comment: Physician Instructions: Evaluate and Treat Consult to Speech Therapy Evaluate & Treat Comment: Metastatic brain cancer Physician Instructions: Evaluate and treat Discharge provider: Zaheer Martinez DO Summary Hospital Course Discharge Diagnosis: Please see course by problem list noted below. Hospital Course: This is a 55-year-old female with no significant past medical history except for untreated hypothyroidism presents to the hospital with acute onset of visual changes weakness and disequilibrium. The patient is initially treated with code stroke initial CT scan finds no hemorrhage but finds multiple lesions further clarified on MRI appearing to be metastatic brain cancer with vasogenic edema. 1. Multifocal brain lesions, believed to be metastatic, acute, present on admission, active -patient presents with acute onset of neurological symptoms including left facial droop, right upper visual field loss with flashing lights right leg weakness and right arm ataxia. -patient received Decadron 10 mg IV in the emergency department following consultation with [facility] oncologist. continued Decadron 4 mg IV every 6 hours while here. -patient has had marked improvement in her symptoms with resolution of the flashing lights but persistence of the visual field loss. Facial droop and ataxia have improved as well. -plan is formulated transfer the patient to [facility] when bed is available for radiation oncology. Accepting hospitalist Dr. William. -diagnosis and imaging findings have been discussed with the patient and her at bedside and are in agreement with plan for transfer when bed becomes available. 2. Left breast mass, chronic, present on admission, active. -patient reports changes in her left breast occurring over the past 2 years. Breast now presents with inferior puckering/folding, no nipple inversion. Patient with no family history of breast cancer. -patient additionally reports weight loss over the last 2 years. Blood counts are within normal limits and calcium is normal at 9.8. -palpable mass behind the areola extending to the 3 o'clock position, nontender to palpation, no drainage. -CT finds left subareolar mass measuring 3.4 x 1.4 cm without axillary or subclavicular adenopathy being size criteria. 3. . Left upper lobe pulmonary nodule, present on admission, active. -patient denies chest pain or shortness of breath with these no exertional dyspnea cough or wheeze. She continues to be a 1/2 pack per day smoker. -CT finds a spiculated pulmonary nodule in the left upper lobe measuring 2.4 x 1.7 cm as well as makes note of subcarinal lymph node with short axis diameter 1.1 cm, no pleural effusion. These likely represent metastases given clinical picture. -incidental pulmonary findings of emphysema on CT imaging. 4. Current smoker, chronic, stable. -provided teaching on smoking encouraged smoking cessation. 5. History of Hypothyroidism -TSH 0.96, no therapy necessary. 6. Asymptomatic bacteruria, present on admission - UA on admission with + nitrate, - LE, no WBC, and urate crystals. She was given a dose of cefriaxone in the ER. No further treatment necessary given lack of symptoms at this time. Specimen was cultured but results are currently pending. Dispo: transfer to [facility], accepting physician Dr. William. Time Spent with Patient Time spent: Greater than 30 minutes Exam Vital Signs (past 8 hours): - 04/20/20 05:25 Temperature 98.0 F Pulse Rate 83 Respiratory Rate 16 Blood Pressure 149/82 H Pulse Oximetry 98 Oxygen Delivery Method Room Air Oxygen Flow Rate 0 Narrative Exam Narrative: GENERAL APPEARANCE: well developed, somewhat frail-appearing female in no acute distress. HEENT: Facial asymmetry improved, PERRLA, sclerae is anicteric, EOMs intact without nystagmus, no sinus tenderness to percussion, no rhinorrhea, mucous membranes are moist and pink without lesions or exudate. NECK/THYROID: neck supple, no JVD, no carotid bruit, no thyromegaly, trachea midline. LYMPH NODES: no cervical or supraclavicular lymphadenopathy. SKIN: [place], warm and dry, no visible lesions, rashes, ulcerations or petechiae. HEART: regular rate and rhythm, S1-S2, no murmur, no rubs or gallops, brisk capillary refill, no edema LUNGS: clear to auscultation bilaterally, no coarseness crackles or wheezing, no cough present CHEST: Symmetrical movement, no accessory muscle use, good tidal volume. Breast exam deferred. ABDOMEN: Soft, no distention, no abdominal tenderness, no guarding or peritoneal signs, no organomegaly, no flank or suprapubic tenderness, active bowel tones. BACK: Normal curvature, nontender to palpation, no CVA tenderness on percussion EXTREMITIES: moves all extremities, strength is 5/5 and symmetrical, no deformities or joint effusions. NEUROLOGIC: AAO x4, right upper visual field deficit, BUE and BLE without drift, right arm ataxia improving, sensation is intact bilaterally, no evidence of aphasia or dysarthria. PSYCH: Good eye contact, cooperative, appropriate with stable behavior Objective Labs Result Diagrams: 04/19/20 13:49 04/20/20 05:50 Labs: Laboratory Results - last 24 hr 04/19/20 04/19/20 04/19/20 13:49 13:49 13:49 WBC 8.7 RBC 4.52 Hgb 14.6 Hct 42.7 MCV 94.5 MCH 32.3 MCHC 34.1 RDW 12.5 Plt Count 410 H Neut % (Auto) 59.3 Lymph % (Auto) 32.9 [place] % (Auto) 5.4 Eos % (Auto) 1.4 L Baso % (Auto) 1.0 Neut # (Auto) 5200 Lymph # (Auto) 2900 [place] # (Auto) 500 Eos # (Auto) 100 Baso # (Auto) 100 PT 11.8 INR 1.0 APTT 33 Sodium 139 Potassium 4.3 Chloride 107 Carbon Dioxide 26 BUN 13 Creatinine 0.63 Estimated GFR > 60.0 BUN/Creatinine Ratio 20.6 Glucose 107 H Hemoglobin A1c Calcium 9.8 Magnesium Total Bilirubin 0.3 AST 37 H ALT 31 Alkaline Phosphatase 106 Total Creatine Kinase 80 CK-MB (CK-2) TNP CK-MB (CK-2) Rel Index TNP Troponin I < 0.012 Total Protein 8.2 Albumin 4.8 Globulin 3.4 Albumin/Globulin Ratio 1.4 TSH Urine Color Urine Appearance Urine pH Ur Specific [place] Urine Protein Urine Glucose (UA) Urine Ketones Urine Occult Blood Urine Nitrate Urine Bilirubin Urine Urobilinogen Ur Leukocyte Esterase Urine RBC Urine WBC Ur Squamous Epith Cells Uric Acid Crystals Urine Bacteria Hyaline Casts Ur Culture Indicated? U Opiates 300ng/mL cut Ur Oxycodone Screen Urine Methadone Screen Ur Barbiturates Screen U Tricyclic Antidepress Ur Phencyclidine Scrn Ur Amphetamines Screen U Methamphetamines Scrn Ur MDMA Scrn (Ecstasy) U Benzodiazepines Scrn Urine Cocaine Screen U Marijuana (THC) Screen SARS-CoV-2 (PCR) 04/19/20 04/19/20 04/19/20 13:49 13:49 13:49 WBC RBC Hgb Hct MCV MCH MCHC RDW Plt Count Neut % (Auto) Lymph % (Auto) [place] % (Auto) Eos % (Auto) Baso % (Auto) Neut # (Auto) Lymph # (Auto) [place] # (Auto) Eos # (Auto) Baso # (Auto) PT INR APTT Sodium Potassium Chloride Carbon Dioxide BUN Creatinine Estimated GFR BUN/Creatinine Ratio Glucose Hemoglobin A1c 5.7 Calcium Magnesium 2.0 Total Bilirubin AST ALT Alkaline Phosphatase Total Creatine Kinase CK-MB (CK-2) CK-MB (CK-2) Rel Index Troponin I Total Protein Albumin Globulin Albumin/Globulin Ratio TSH Urine Color Urine Appearance Urine pH Ur Specific [place] Urine Protein Urine Glucose (UA) Urine Ketones Urine Occult Blood Urine Nitrate Urine Bilirubin Urine Urobilinogen Ur Leukocyte Esterase Urine RBC Urine WBC Ur Squamous Epith Cells Uric Acid Crystals Urine Bacteria Hyaline Casts Ur Culture Indicated? U Opiates 300ng/mL cut Ur Oxycodone Screen Urine Methadone Screen Ur Barbiturates Screen U Tricyclic Antidepress Ur Phencyclidine Scrn Ur Amphetamines Screen U Methamphetamines Scrn Ur MDMA Scrn (Ecstasy) U Benzodiazepines Scrn Urine Cocaine Screen U Marijuana (THC) Screen SARS-CoV-2 (PCR) Negative 04/19/20 04/19/20 04/19/20 13:49 20:10 20:10 WBC RBC Hgb Hct MCV MCH MCHC RDW Plt Count Neut % (Auto) Lymph % (Auto) [place] % (Auto) Eos % (Auto) Baso % (Auto) Neut # (Auto) Lymph # (Auto) [place] # (Auto) Eos # (Auto) Baso # (Auto) PT INR APTT Sodium Potassium Chloride Carbon Dioxide BUN Creatinine Estimated GFR BUN/Creatinine Ratio Glucose Hemoglobin A1c Calcium Magnesium Total Bilirubin AST ALT Alkaline Phosphatase Total Creatine Kinase CK-MB (CK-2) CK-MB (CK-2) Rel Index Troponin I Total Protein Albumin Globulin Albumin/Globulin Ratio TSH 0.96 Urine Color Yellow Urine Appearance Clear Urine pH 5.0 Ur Specific [place] 1.025 Urine Protein Negative Urine Glucose (UA) Negative Urine Ketones Negative Urine Occult Blood 1+ H Urine Nitrate Positive H Urine Bilirubin Negative Urine Urobilinogen 0.2 Ur Leukocyte Esterase Negative Urine RBC 0-1/hpf Urine WBC None seen Ur Squamous Epith Cells 0-1 /hpf Uric Acid Crystals Few H Urine Bacteria Moderate (10-30) H Hyaline Casts 0-1/lpf Ur Culture Indicated? Specimen cultured U Opiates 300ng/mL cut Negative Ur Oxycodone Screen Negative Urine Methadone Screen Negative Ur Barbiturates Screen Negative U Tricyclic Antidepress Negative Ur Phencyclidine Scrn Negative Ur Amphetamines Screen Negative U Methamphetamines Scrn Negative Ur MDMA Scrn (Ecstasy) Negative U Benzodiazepines Scrn Negative Urine Cocaine Screen Negative U Marijuana (THC) Screen Negative SARS-CoV-2 (PCR) 04/20/20 05:50 WBC RBC Hgb Hct MCV MCH MCHC RDW Plt Count Neut % (Auto) Lymph % (Auto) [place] % (Auto) Eos % (Auto) Baso % (Auto) Neut # (Auto) Lymph # (Auto) [place] # (Auto) Eos # (Auto) Baso # (Auto) PT INR APTT Sodium 137 Potassium 4.3 Chloride 109 H Carbon Dioxide 21 L BUN 12 Creatinine 0.43 L Estimated GFR > 60.0 BUN/Creatinine Ratio 27.9 H Glucose 168 H Hemoglobin A1c Calcium 9.6 Magnesium Total Bilirubin 0.4 AST 25 ALT 26 Alkaline Phosphatase 93 Total Creatine Kinase CK-MB (CK-2) CK-MB (CK-2) Rel Index Troponin I Total Protein 7.6 Albumin 4.5 Globulin 3.1 Albumin/Globulin Ratio 1.5 TSH Urine Color Urine Appearance Urine pH Ur Specific [place] Urine Protein Urine Glucose (UA) Urine Ketones Urine Occult Blood Urine Nitrate Urine Bilirubin Urine Urobilinogen Ur Leukocyte Esterase Urine RBC Urine WBC Ur Squamous Epith Cells Uric Acid Crystals Urine Bacteria Hyaline Casts Ur Culture Indicated? U Opiates 300ng/mL cut Ur Oxycodone Screen Urine Methadone Screen Ur Barbiturates Screen U Tricyclic Antidepress Ur Phencyclidine Scrn Ur Amphetamines Screen U Methamphetamines Scrn Ur MDMA Scrn (Ecstasy) U Benzodiazepines Scrn Urine Cocaine Screen U Marijuana (THC) Screen SARS-CoV-2 (PCR) PFSH Medical History Hypothyroidism Surgical History History of History of cholecystectomy Family History Father Diabetes mellitus Chronic kidney disease with end stage renal failure on dialysis Hx of BKA Mother Epilepsy Heart attack Brother Trauma Social History household members: spouse Smoking Status: Current every day smoker alcohol intake: current Discharge Plan Discharge Plan Disposition: Xfer Acute Care Hospital Discharge Data Attending Provider: Zaheer Martinez VTE Deep Vein Thrombosis/Pulmonary Embolism Present on Admission: No
[2020-04-20 09:00] VITALS: BP 136/77; PULSE 86; RESP 16; TEMP 36.6; O2SAT 98
--- NOTE | 2020-04-20 09:04 | CM.DANOTE ---
Addendum entered by Stephy Brody LPN 04/20/20 11:36: Dr. Martinez and RN coordinator Aly confirmed in rounds that pt is first on list for open bed at [facility] and transfer is expected today. Original Note: Discharge Planning/Care Management DCP: assessment: case received, EMR reviewed. A transfer to [facility] under care of Dr. Rojas is in process. Pt is a 55 year old female who admitted yesterday evening to care of hospitalist team. Payer: unclear: pt did have [employer]/Medicaid and Admission counselor team re looking to see it this can be reinstated/see those notes in [facility]. Will discuss in Team Rounds and follow accordingly. CM Discharge Assessment Start: 04/20/20 09:01 Freq: Status: Active Protocol: Document 04/20/20 09:01 ITV (Rec: 04/20/20 09:02 ITV [id number]) Discharge Planning Assessment Advance Directives? No History Provided By Medical Record Prior Living Arrangements House Household Members Review Status In Process
--- NOTE | 2020-04-20 09:45 | SLP.IPNOTE ---
Order received. According to Dr. Martinez, pt is being transferred to [facility] for treatment. Order cancelled.
--- NOTE | 2020-04-20 10:06 | PT.IIE ---
Surgical History (Last Reviewed 04/20/20 @ 09:02 by Zaheer Martinez DO) History of History of cholecystectomy Medical History (Last Reviewed 04/20/20 @ 09:02 by Zaheer Martinez DO) Hypothyroidism Physical Therapy Inpatient Evaluation/Re-Eval M1 PT/OT-IP Prior Functional Status Start: 04/20/20 11:46 Freq: NEEDED Status: Active Protocol: Document 04/20/20 10:06 AB (Rec: 04/20/20 12:00 AB [email or web address]) Medical Review Prior Functional Status Medical History Reviewed Yes Communication able to make needs known Mobility and Gait pt stated that she is independent with all mobilities and ambulation without AD Social History Household Members spouse,children Living Arrangements House Number of Floors (Floors) One Floor Number of Stairs To Enter/Railing? 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 pt lives with is sposue and a 15 y/o son M2 PT-IP Current Condition Start: 04/20/20 11:46 Freq: NEEDED Status: Active Protocol: Document 04/20/20 10:06 AB (Rec: 04/20/20 12:00 AB [id number]) Physical Therapy Current Condition Current Condition Evaluation Date 04/20/20 Treatment Diagnosis brain mets; difficulty in walking Onset Date 04/19/20 M3 PT-IP Subjective Start: 04/20/20 11:46 Freq: NEEDED Status: Active Protocol: Document 04/20/20 10:06 AB (Rec: 04/20/20 12:00 AB [email or web address]) Subjective Physical Therapy Visit Type Type Initial Evaluation Visit Start Time 10:06 Visit Stop Time 10:23 Total Visit Minutes 17 Number of DRYWALLER Visits 0 Physical Therapy Visit Comments Patient Comments pt is agreeable to do PT Therapy Pain Assessment Pain Present Pain Present Denied Pain M4 PT-IP Mobility and Gait Start: 04/20/20 11:46 Freq: NEEDED Status: Active Protocol: Document 04/20/20 10:06 AB (Rec: 04/20/20 12:00 AB [email or web address]) PT-Bed Mobility Assessment Supine to Sit Supine to Sit Independent Sit to Supine Sit to Supine Independent PT-Transfer Assessment Sit to and From Stand Sit to and from Stand Contact Guard Assistance,Use of Upper Extremities Equipment Transfer Assistive Device Gait Belt Orthotic/Prosthetic Devices or Brace: No Transfers Transfer Destination Chair Transfer Technique ambulated using FWW Transfer Ability Level of Assist Contact Guard Assistance Comments Mobility Comments pt completed supine to sit mod I and was able to sit on EOB SBA. completed sit to stand CGA and was able to ambulate in room without AD CGA to min A ~ 30 ft with LOB to the R. Assessed ambulation using FWW and completed 25 ft requiring CGA and cues. c/o dizziness after ambulation but agreed to sit up on the chair. BP checked: 154/93 . positioned on chair. call light and table placed within reach. Left pt with nurse and OT in room. Gait Assessment Gait Gait Assistance Required: Contact Guard Assist,Minimum Assistance Distance (Feet) 30 Able to Maintain Weight Bearing Status Yes During Gait Assistive Devices Assistive Device None,Gait Belt,Front Wheeled Walker Orthotic/Prosthetic Devices or Brace: No Gait Deviations General Gait Pattern Antalgic,Decreased Stride Length,Decreased Feet Clearance Factors Limiting Gait Function Factors Limiting Gait Function Decreased Activity Tolerance, Decreased Strength,Poor Balance Comments Gait Comments pls refer to mobility section for details PT-Balance Assessment Sitting Balance and Reactions Static Sitting Balance Ability Good Dynamic Sitting Balance Ability Good Standing Balance and Reactions Static Standing Balance Ability Fair Dynamic Standing Balance Ability Fair Device Used FWW M5 PT-IP Objective Assessments Start: 04/20/20 11:46 Freq: NEEDED Status: Active Protocol: Document 04/20/20 10:06 AB (Rec: 04/20/20 12:00 [email or web address]) Orientation Orientation/Cognition Level of Alertness Alert Orientation Name,Place,Situation Language Function Ability No Deficits Noted Safety Awareness Understands Safety Issues Memory Description No Deficits Noted Gross Range of Motion Lower Extremity ROM Assessment Within Functional Limits Strength Lower Extremity Strength Hip 4/5 Knee 4-/5 Muscle Tone Muscle Tone WNL Yes M6 PT-IP Treatment Start: 04/20/20 11:46 Freq: NEEDED Status: Active Protocol: Document 04/20/20 10:06 AB ([email or web address] Therapy Treatment Education Education Provided Safety M7 PT-IP Assessment and Plan Start: 04/20/20 11:46 Freq: NEEDED Status: Active Protocol: Document 04/20/20 10:06 AB (Rec: 04/20/20 12:00 AB [email or web address]) PT Summary Assessment and Plan Potential Rehabilitation Potential Good Status of Condition at Evaluation Evolving Summary Impairments Strength,Balance,Transfers, Gait,Activity Tolerance Assessment Summary Pt requiring CGA to min A for ambulation without AD and recommending use of FWW at this time for safety. Prior to PT eval, doctor plans to transfer pt to [facility] but higher level of care but is awaiting bed availability. at this time, pt will require assist at home. will continue assessing progress. Goals Transfer Goal Independent Gait Goal Independent Gait Distance 200 Other Goals up/down 5 steps without rails SBA Days to Meet Goals 5 Frequency of Treatment Frequency Of Treatment Once a Day Treatment Plan Physical Therapy Treatment Plan Bed Mobility Training,Transfer Training,Gait Training, Therapeutic Exercise,Balance Retraining,Discharge Planning, Hot or Cold Pack,Neuromuscular Re-ed,Coordination Retraining Recommendations To Nursing Amount of Assist Needed 1 Person Assist Discharge Recommendations PT Discharge Recommendations Home with Assistance, Outpatient PT Transportation Needs at Discharge Private Vehicle
--- NOTE | 2020-04-20 11:30 | OT.IPNOTE ---
Discussed case with nursing. Pt is planned for transfer to another hospital. Will hold at this time.
--- NOTE | 2020-04-20 13:01 | PC.NURSE ---
Transfer: Pt transfered to [facility]. Report given to amb crew. Called Silvio with report at [facility]. Pt feels she has improved. Her symptoms now are less than on admit. She can walk now and move the right leg - yesterday pt reports she couldn't stand on it. Flashing lights she saw out of her rt eye are gone now. She is still light headed when she gets up and is unsteady on feet so instructed to call for assist and she has been using call light as well. Silvio made aware of her CT scans and masses of the breast, nodule lung and 13 spots seen in the brain. Decadron has caused improvement in vision and mobility. Questions answered and he was given this writers number in case he needed more information.
== END 2020-04-20 11:10 | disposition short-term general hospital (02) | DRG 54 ==
LOC: ED 15:58 → AC 18:18
PROVIDERS: Nurse Practitioner Adult Health; Admitting Provider Internal Medicine; Emergency Provider Emergency Medicine; Referring Provider Emergency Medicine; Visit Provider Internal Medicine
DX: C79.31 Secondary malignant neoplasm of brain (principal); G93.6 Cerebral edema; C78.02 Secondary malignant neoplasm of left lung; C80.1 Malignant (primary) neoplasm, unspecified; N63.42 Unspecified lump in left breast, subareolar; H53.8 Other visual disturbances; R00.0 Tachycardia, unspecified; F17.210 Nicotine dependence, cigarettes, uncomplicated; R29.810 Facial weakness; R27.0 Ataxia, unspecified; Z20.822 Contact with and (suspected) exposure to COVID-19
CPT/HCPCS: 36415; 70450; 70553; 71260; 74177; 80053; 80305; 81001; 82550; 82962; 83036; 83735; 84443; 84484; 85025; 85610; 85730; 87077; 87086; 87186; 87635; 93005; 96361; 96374; 96375; 97161; 99284; C9803; A9270; A9579; J1100; J1644; J2060; Q9967